=== PATIENT | female | born 1995 | race Two or more races ===

== ENCOUNTER 2024-10-07 05:23 | Emergency (ER) | payer MEDICAID ==
[~2024-10-07] VITALS: Ht 157.5 cm; Wt 83.2 kg
--- NOTE | 2024-10-07 05:57 | ED.PDOC ---
History of Present Illness HPI Comments 28 y/o F, with a Hx of anemia and asthma and a FMHx of heart disease, HTN, DM, and CA, presents with c/o shortness of breath, cough, and left-rib pain, today. Patient endorses on having a cough for 3x months, shortness of breath for 3x weeks, and left rib pain for 1x day. Patient states on cough being productive with initial onset but has been dry as of late in addition to endorsement of a fever 2x weeks ago that has subsided since. Patient denies having any chest pain, dyspnea, nausea, vomiting, fever, chills, or other associated symptoms or modifiers at this time. Chief Complaint: Shortness of Breath Time Seen by MD: 05:45 Reviewed Notes: Nurses Notes, Medications, Allergies Allergies: Coded Allergies: Codeine (Verified Allergy, Unknown, 10/07/24) Home Meds Active Scripts Methylprednisolone (Medrol Dosepak) 4 Mg Miles, 4 MG PO UD, #21 TAB UAD Prov:HIRAM KWONG MD 10/07/24 Azithromycin (Zithromax) 1 Gm Pow, 1 PACK PO ONCE, #1 PACK Prov:HIRAM KWONG MD 10/07/24 Information Source: Patient Mode of Arrival: Ambulatory Severity: Moderate Timing: Months Duration: Since onset Prehospital treatment: None Past Medical History PAST MEDICAL HISTORY: Anemia, Asthma Surgical History: Cholecystectomy, 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 History: Denies all 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 Hx Family History Family History: No family hx ofKidney iraj, No family hx of Liver iraj, No family hx of Lung iraj, No family hx of Stroke, Family hx of DM, Family hx of Cancer, Family hx of heart iraj, Family hx of HTN Social History Smoker: Non-Smoker Alcohol: Denies ETOH Use Drugs: Denies Drug Use Lives In: Home Constitutional: denies: chills, diaphoresis, fatigue, fever, malaise, sweats, weakness, others EENTM: denies: blurred vision, double vision, ear bleeding, ear discharge, ear drainage, ear pain, ear ringing, eye pain, eye redness, hearing loss, mouth pain, mouth swelling, nasal discharge, nose bleeding, nose congestion, nose pain, photophobia, tearing, throat pain, throat swelling, voice changes, others Respiratory: reports: cough, shortness of breath; denies: hemoptysis, orthopnea, SOB at rest, SOB with excertion, stridor, wheezing, others Cardiovascular: denies: chest pain, dizzy spells, diaphoresis, Dyspnea on exertion, edema, irregular heart beat, left arm pain, lightheadedness, palpitations, PND, syncope, others Gastrointestinal: denies: abdomen distended, abdominal pain, blood streaked bowels, constipated, diarrhea, dysphagia, difficulty swallowing, hematemesis, melena, nausea, poor appetite, poor fluid intake, rectal bleeding, rectal pain, vomiting, others Genitourinary: denies: abnormal vagina bleeding, burning, dyspareunia, dysuria, flank pain, frequency, hematuria, incontinence, pain, , vagina discharge, urgency, others Neurological: denies: dizziness, fainting, headache, left sided numbness, left sided weakness, numbness, paresthesia, pre-existing deficit, right sided numbness, right sided weakness, seizure, speech problems, tingling, tremors, wea kness, others Musculoskeletal: reports: others (left rib pain ); denies: back pain, gout, joint pain, joint swelling, muscle pain, muscle stiffness, neck pain Integumetry: denies: bruises, change in color, change in hair/nails, dryness, laceration, lesions, lumps, rash, wounds, others Allergic/Immunocompromised: denies: Difficulty Healing, Frequent Infections, Hives, Itching, others Hematologic/Lymphatic: denies: anemia, blood clots, easy bleeding, easy bruising, swollen glands, others Endocrine: denies: excessive hunger, excessive sweating, excessive thirst, excessive urination, flushing, intolerance to cold, intolerance to heat, unexplained weight gain, unexplained weight loss, others Psychiatric: denies: anxiety, bipolar disorder, depression, hopeless, panic disorder, schizophrenia, sleepless, suicidal, others All Other Systems: Reviewed and Negative Physical Exam General Appearance: No Apparent Distress HEENT: Normal ENT Inspection, Pharynx Normal, TMs Normal Neck: Full Range of Motion, Non-Tender, Normal, Normal Inspection Respiratory: Chest Non-Tender, Lungs Clear, No Accessory Muscle Use, No Respiratory Distress, Normal Breath Sounds Cardiovascular: No Edema, No JVD, No Murmur, No Gallop, Normal Peripheral Pulses, Regular Rate/Rhythm Breast Exam: Deferred Gastrointestinal: No Organomegaly, Non Tender, No Pulsatile Mass, Normal Bowel Sounds, Soft Genitalia: Deferred Pelvic: Deferred Rectal: Deferred Extremities: No calf tenderness, Normal capillary refill, Normal inspection, Normal range of motion, Non-tender, No pedal edema Musculoskeletal : Apperance: Normal Neurologic: Alert, cash applications manager II-XII nml as Tested, No Motor Deficits, Normal Affect, Normal Mood, No Sensory Deficits Cerebellar Function: Normal Reflexes: Normal Skin: Dry, Normal Color, Warm Lymphatic: No Adenopathy Was a procedure done? Was a procedure done?: No Differential Dx Considerations may include: asthma exacerbation, bronchitis, PNA, pleural effusions, Covid19, URI, musculoskeletal pain, viral syndrome X-Ray, Labs, Meds, VS Vital Signs Date Time Temp Pulse Resp B/P (MAP) Pulse Ox O2 Delivery O2 Flow Rate FiO2 10/07/24 05:54 98.7 77 16 130/76 (94) 98 Chest x-ray was ordered in his pending The patient was being signed out to Dr. English Images Reviewed?: Images reviewed and evaluated by me Time of 1ST Reevaluation: 06:15 Reevaluation 1ST: Unchanged Patient Education/Counseling: Diagnosis, Treatment, Prognosis Family Education/Counseling: No Family Present Departure 1 Departure Time of Disposition: 06:04 Impression: Primary Impression: Acute bronchitis Qualified Codes: J20.9 - Acute bronchitis, unspecified Disposition: 30 STILL A PATIENT Condition: Fair e-Prescriptions Methylprednisolone (Medrol Dosepak) 4 Mg Miles 4 MG PO UD, #21 TAB UAD Prov: HIRAM KWONG MD 10/07/24 Azithromycin (Zithromax) 1 Gm Pow 1 PACK PO ONCE, #1 PACK Prov: HIRAM KWONG MD 10/07/24 Discharged With: Self Critical Care Note Critical Care Time?: No Stability Stability form required: No Heart Score Heart Score: Heart Score Response (Comments) Value History N/A 0 EKG N/A 0 Age N/A 0 Risk Factors N/A 0 Troponin N/A 0 Total 0 I personally scribed for HIRAM KWONG MD ([email or web address]) on 10/07/24 at 05:57. Electronically submitted by Pj Iraheta ([email or web address]). HIRAM KWONG MD Oct 07, 2024 05:57
[2024-10-07] MEDS ORDERED: METH4PAK PO (06:05)
[2024-10-07] MEDS ORDERED: AZIT1POW PO (06:05)
--- NOTE | 2024-10-07 06:41 | DVH ---
XY CHEST TWO VIEWS ROUTINE CLINICAL HISTORY: cough COMPARISON: None TECHNIQUE: Frontal and lateral view of the chest was obtained FINDINGS: Lines and Tubes: None Lungs: No focal consolidation. Pleura: No effusion. No pneumothorax. Cardiomediastinal contours: Unremarkable Bones: No acute osseous abnormality. IMPRESSION: 1. No acute cardiopulmonary disease.
[2024-10-07 08:27] VITALS: BP 139/61; PULSE 83; RESP 16; TEMP 97.8; O2SAT 97
== END 2024-10-07 08:32 | disposition home or self-care (01) ==
LOC: ER 05:23
DX: J20.9 Acute bronchitis, unspecified (principal); J45.909 Unspecified asthma, uncomplicated; Z90.49 Acquired absence of other specified parts of digestive tract; Z98.890 Other specified postprocedural states
CPT/HCPCS: 71046

== ENCOUNTER 2025-08-27 20:37 | Emergency (ER) | payer MEDICAID ==
[~2025-08-27] VITALS: Ht 157.5 cm; Wt 81.0 kg
[~2025-08-27 20:37] MED LIST: AZIT1POW PO; METH4PAK PO
[2025-08-28 00:20] VITALS: BP 102/64; TEMP 97.9
[2025-08-28 00:29] VITALS: PULSE 83; RESP 16; O2SAT 96
[2025-08-28 01:13] LABS: Urine Protein, UAD Negative (Negative)
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
[2025-08-28] MEDS ORDERED: TIZA-142 PO (03:03)
[2025-08-28] MEDS ORDERED: NABU-72 PO (03:03)
== END 2025-08-28 03:28 | disposition home or self-care (01) ==
LOC: ER 20:37
DX: S30.11XA Contusion of abdominal wall, initial encounter (principal); S39.012A Strain of muscle, fascia and tendon of lower back, initial encounter; J45.909 Unspecified asthma, uncomplicated; D64.9 Anemia, unspecified; Z98.890 Other specified postprocedural states; Z90.49 Acquired absence of other specified parts of digestive tract; Z88.5 Allergy status to narcotic agent; V49.40XA Driver injured in collision with unspecified motor vehicles in traffic accident, initial encounter; Y93.I9 Activity, other involving external motion; Y92.488 Other paved roadways as the place of occurrence of the external cause; Y99.8 Other external cause status
CPT/HCPCS: 74176; 81001; 81025